=== PATIENT | male | born 1955 | race Caucasian/White ===

== ENCOUNTER 2020-12-08 05:13 | Inpatient (IN) ==
[2020-12-08 06:28] LABS: Basophils % 0.2 %; Hematocrit 52.9 % (37.5-50.1); Hemoglobin 17.9 g/dL (12.9-16.9); Immature Granulocytes % 0.7 % (0-4); Lymphocytes % 11.6 %; Mean Corpuscular HGB Conc 33.8 g/dL (31.6-35.5); Mean Corpuscular Hemoglobin 28.9 pg (28.0-33.3); Mean Corpuscular Volume 85.5 fL (83.0-100.0); Mean Platelet Volume 10.7 fL (9.4-12.4); Monocytes # 0.5 K/mcL (0.0-1.3); Monocytes % 5.5 %; Neutrophils # 6.8 K/mcL (1.6-8.9); Platelet Count 178 K/mcL (140-400); Red Blood Count 6.19 M/mcL (4.19-5.50); Red Cell Distribution Width 13.1 % (11.5-14.5); White Blood Count 8.3 K/mcL (4.3-11.1)
[2020-12-08 06:38] LABS: BUN/Creatinine Ratio 18 (6-26); Blood Urea Nitrogen 26 mg/dL (8-23); Calcium 8.7 mg/dL (8.6-10.3); Chloride 100 mEq/L (98-107); Glucose 119 mg/dL (70-105); Osmolality,Calculated 282 (280-300); Potassium 3.9 mEq/L (3.5-5.1); Sodium 133 mEq/L (136-145); Troponin I 0.03 ng/mL (< 0.04); eGFR For African Americans > 60 (> 60); eGFR For Non-African Americans 51 (> 60)
[2020-12-08 06:39] LABS: D-Dimer 858 ng/mLFEU (0-500)
[2020-12-08] MEDS ORDERED: Isovue-370 500 ML BOTTLE IVP ONE (06:48)
[2020-12-08 06:53] LABS: Influenza A PCR Negative (Negative); Influenza B PCR Negative (Negative); Resp. Syncytial Virus PCR Negative (Negative)
[2020-12-08 06:54] LABS: SARS-CoV-2 by PCR (In House) Positive (Negative)
[2020-12-08 08:07] LABS: Carbon Dioxide 19 mEq/L (23-29)
[2020-12-08] MEDS ORDERED: *HR* Heparin 5,000 UNIT/ML VIAL IVP ONE (08:21)
[2020-12-08] MEDS ORDERED: *HR* Heparin 5,000 UNIT/ML VIAL IVP PRN ×2 (08:21)
[2020-12-08] MEDS ORDERED: Ondansetron 4 MG/2 ML VIAL IVP PRN (08:33)
[2020-12-08] MEDS ORDERED: Naloxone 0.4 MG/ML INJ IVP PRN (08:33)
[2020-12-08 08:36] LABS: Basophils % 0.1 %; Hematocrit 50.3 % (37.5-50.1); Hemoglobin 17.2 g/dL (12.9-16.9); Immature Granulocytes % 0.7 % (0-4); Lymphocytes # 1.1 K/mcL (0.6-4.6); Lymphocytes % 12.9 %; Mean Corpuscular HGB Conc 34.2 g/dL (31.6-35.5); Mean Corpuscular Hemoglobin 29.3 pg (28.0-33.3); Mean Corpuscular Volume 85.5 fL (83.0-100.0); Mean Platelet Volume 10.3 fL (9.4-12.4); Monocytes # 0.5 K/mcL (0.0-1.3); Monocytes % 5.9 %; Neutrophils # 6.5 K/mcL (1.6-8.9); Platelet Count 179 K/mcL (140-400); Red Blood Count 5.88 M/mcL (4.19-5.50); Red Cell Distribution Width 12.8 % (11.5-14.5); Segmented Neutrophils % 80.4 %; White Blood Count 8.1 K/mcL (4.3-11.1)
[2020-12-08 08:43] LABS: Fibrinogen 664 mg/dL (169-393)
[2020-12-08] MEDS ORDERED: Perflutren Lipid Microsphere 1.3 ML in 0.9 % Sodium Chloride 8.7 ML IVP PRN (08:43)
[2020-12-08] MEDS ORDERED: *HR* Dextrose 50 % in Water (Syg) 50 ML SYRINGE IVP PRN (08:46)
[2020-12-08] MEDS ORDERED: Dextrose Gel 15 GM/37.5 ML TUBE PO PRN ×2 (08:46)
[2020-12-08] MEDS ORDERED: D5% in Water 1,000 ML IVC PRN (08:46)
[2020-12-08] MEDS: Heparin 25,000UNIT/250ML 1/2NS 25,000 UNIT/250 ML IV.SOLN IVC SCH (09:12)
[2020-12-08 11:36] LABS: Ferritin > 1500 ng/mL (20-250)
[2020-12-08 11:53] LABS: INR 1.3; Prothrombin Time 14.9 Seconds (9.4-12.1)
[2020-12-08 12:09] LABS: Alanine Aminotransferase 61 Units/L (7-52); Albumin 3.8 g/dL (3.5-5.7); Albumin/Globulin Ratio 1.2 (1.1-2.2); Alkaline Phosphatase 48 Units/L (34-104); Aspartate Amino Transferase 107 Units/L (13-39); Bilirubin,Direct 0.3 mg/dL (0.0-0.2); Bilirubin,Indirect 0.8 mg/dL (0.0-1.0); Bilirubin,Total 1.1 mg/dL (0.3-1.0); C-Reactive Protein 56 mg/L (Less than 10); Globulin 3.3 g/dL (2.4-3.5); Lactate Dehydrogenase 786 Units/L (140-271); Total Protein 7.1 g/dL (6.4-8.9)
[2020-12-08] MEDS: Ipratropium 1 PUFF INHALER IH SCH ×4 (14:06→23:23)
[2020-12-08] MEDS ORDERED: Remdesivir 200 MG in 0.9 % Sodium Chloride 100 ML IVPB ONE (16:06)
[2020-12-08] MEDS ORDERED: Chloraseptic Spray 177 ML BOTTLE MM PRN (23:17)
[2020-12-09] MEDS ORDERED: *HR* Metoprolol 5 MG/5 ML VIAL IVP ONE (02:21)
[2020-12-09] MEDS: Ipratropium 1 PUFF INHALER IH SCH ×4 (03:18→21:15)
[2020-12-09] MEDS ORDERED: Acetaminophen IV 500 MG/50 ML BAG IVPB ONE (04:50)
[2020-12-09 05:41] LABS: Basophils % 0.2 %; Hematocrit 52.8 % (37.5-50.1); Hemoglobin 18.1 g/dL (12.9-16.9); Immature Granulocytes % 0.7 % (0-4); Lymphocytes # 0.8 K/mcL (0.6-4.6); Lymphocytes % 6.1 %; Mean Corpuscular HGB Conc 34.3 g/dL (31.6-35.5); Mean Corpuscular Hemoglobin 29.1 pg (28.0-33.3); Mean Corpuscular Volume 84.9 fL (83.0-100.0); Mean Platelet Volume 10.2 fL (9.4-12.4); Monocytes # 0.5 K/mcL (0.0-1.3); Monocytes % 3.7 %; Neutrophils # 11.8 K/mcL (1.6-8.9); Platelet Count 233 K/mcL (140-400); Red Blood Count 6.22 M/mcL (4.19-5.50); Red Cell Distribution Width 12.9 % (11.5-14.5); Segmented Neutrophils % 89.3 %
[2020-12-09 05:46] LABS: Heparin anti-factor XA UFH 0.9 IU/mL (0.30-0.70)
[2020-12-09 05:54] LABS: White Blood Count 13.2 K/mcL (4.3-11.1)
[2020-12-09 06:13] LABS: Alanine Aminotransferase 45 Units/L (7-52); Albumin 3.6 g/dL (3.5-5.7); Albumin/Globulin Ratio 1.2 (1.1-2.2); Alkaline Phosphatase 48 Units/L (34-104); Aspartate Amino Transferase 58 Units/L (13-39); BUN/Creatinine Ratio 23 (6-26); Bilirubin,Total 1.1 mg/dL (0.3-1.0); Blood Urea Nitrogen 28 mg/dL (8-23); Calcium 8.5 mg/dL (8.6-10.3); Carbon Dioxide 18 mEq/L (23-29); Chloride 105 mEq/L (98-107); Globulin 2.9 g/dL (2.4-3.5); Glucose 132 mg/dL (70-105); Osmolality,Calculated 291 (280-300); Potassium 4.2 mEq/L (3.5-5.1); Sodium 137 mEq/L (136-145); Total Protein 6.5 g/dL (6.4-8.9); eGFR For African Americans > 60 (> 60); eGFR For Non-African Americans 59 (> 60)
[2020-12-09 06:14] LABS: Albumin 3.6 g/dL (3.5-5.7); Albumin/Globulin Ratio 1.2 (1.1-2.2); Bilirubin,Direct 0.5 mg/dL (0.0-0.2); Bilirubin,Indirect 0.6 mg/dL (0.0-1.0); Bilirubin,Total 1.1 mg/dL (0.3-1.0); Total Protein 6.6 g/dL (6.4-8.9)
[2020-12-09] MEDS: cefTRIAXone 1,000 MG in Water for inj. (sterile) 10 ML IVP SCH ×2 (06:15→10:50)
[2020-12-09] MEDS: Azithromycin 500 MG in 0.9 % Sodium Chloride 250 ML IVPB SCH (06:42)
[2020-12-09] MEDS: Dexamethasone Sodium Phos/PF 10 MG/ML VIAL IVP SCH ×2 (07:40→14:43)
[2020-12-09] MEDS ORDERED: Furosemide 20 MG/2 ML VIAL IVP SCH (09:00)
[2020-12-09] MEDS ORDERED: cefTRIAXone 1,000 MG in Water for inj. (sterile) 10 ML IVP SCH (09:00)
[2020-12-09] MEDS: Pantoprazole 40 MG VIAL IVP SCH (10:48)
[2020-12-09] MEDS: Furosemide 20 MG/2 ML VIAL IVP SCH (10:49)
[2020-12-09] MEDS: Metoprolol XL (24 HR) Succ 50 MG TAB.ER.24H PO SCH (10:50)
[2020-12-09] MEDS: Heparin 25,000UNIT/250ML 1/2NS 25,000 UNIT/250 ML IV.SOLN IVC SCH (14:15)
[2020-12-09] MEDS ORDERED: Dexamethasone Sodium Phos/PF 10 MG/ML VIAL IVP ONE (14:30)
[2020-12-09] MEDS: Remdesivir 100 MG in 0.9 % Sodium Chloride 100 ML IVPB SCH (18:01)
[2020-12-10] MEDS: Ipratropium 1 PUFF INHALER IH SCH ×4 (03:18→21:31)
[2020-12-10 06:13] LABS: Basophils % 0.2 %; Hemoglobin 18.8 g/dL (12.9-16.9); Lymphocytes # 0.8 K/mcL (0.6-4.6); Lymphocytes % 5.8 %; Mean Corpuscular HGB Conc 33.8 g/dL (31.6-35.5); Mean Corpuscular Hemoglobin 29.1 pg (28.0-33.3); Mean Corpuscular Volume 85.9 fL (83.0-100.0); Mean Platelet Volume 10.2 fL (9.4-12.4); Monocytes # 0.6 K/mcL (0.0-1.3); Monocytes % 4.3 %; Neutrophils # 11.5 K/mcL (1.6-8.9); Platelet Count 309 K/mcL (140-400); Red Blood Count 6.47 M/mcL (4.19-5.50); Red Cell Distribution Width 13.2 % (11.5-14.5); Segmented Neutrophils % 88.7 %
[2020-12-10 06:19] LABS: Hematocrit 55.6 % (37.5-50.1)
[2020-12-10 06:21] LABS: BUN/Creatinine Ratio 34 (6-26); Blood Urea Nitrogen 43 mg/dL (8-23); Calcium 8.7 mg/dL (8.6-10.3); Carbon Dioxide 22 mEq/L (23-29); Chloride 109 mEq/L (98-107); Glucose 166 mg/dL (70-105); Osmolality,Calculated 309 (280-300); Sodium 142 mEq/L (136-145); eGFR For African Americans > 60 (> 60); eGFR For Non-African Americans 57 (> 60)
[2020-12-10 06:22] LABS: Albumin 3.6 g/dL (3.5-5.7); Albumin/Globulin Ratio 1.2 (1.1-2.2); Bilirubin,Direct 0.4 mg/dL (0.0-0.2); Bilirubin,Indirect 0.7 mg/dL (0.0-1.0); Bilirubin,Total 1.1 mg/dL (0.3-1.0); Globulin 3.1 g/dL (2.4-3.5); Total Protein 6.7 g/dL (6.4-8.9)
[2020-12-10] MEDS: Azithromycin 500 MG in 0.9 % Sodium Chloride 250 ML IVPB SCH (06:38)
[2020-12-10] MEDS: Furosemide 20 MG/2 ML VIAL IVP SCH (08:37)
[2020-12-10] MEDS: cefTRIAXone 1,000 MG in Water for inj. (sterile) 10 ML IVP SCH (08:38)
[2020-12-10] MEDS: Dexamethasone Sodium Phos/PF 10 MG/ML VIAL IVP SCH (08:38)
[2020-12-10] MEDS: Pantoprazole 40 MG VIAL IVP SCH (08:39)
[2020-12-10] MEDS: Metoprolol XL (24 HR) Succ 50 MG TAB.ER.24H PO SCH (11:44)
[2020-12-10] MEDS ORDERED: *HR* Rivaroxaban 10 MG TABLET PO SCH (17:00)
[2020-12-10] MEDS: Remdesivir 100 MG in 0.9 % Sodium Chloride 100 ML IVPB SCH (17:38)
[2020-12-11] MEDS: Ipratropium 1 PUFF INHALER IH SCH ×4 (02:56→22:15)
[2020-12-11] MEDS: Azithromycin 500 MG in 0.9 % Sodium Chloride 250 ML IVPB SCH (05:26)
[2020-12-11] MEDS: *HR* Enoxaparin 120 MG/0.8 ML SYRINGE SQ SCH ×2 (05:28→17:00)
[2020-12-11 06:43] LABS: Basophils # 0.1 K/mcL (0.0-0.2); Basophils % 0.4 %; Hemoglobin 18.1 g/dL (12.9-16.9); Immature Granulocytes % 1.2 % (0-4); Lymphocytes # 0.6 K/mcL (0.6-4.6); Lymphocytes % 3.1 %; Mean Corpuscular HGB Conc 33.5 g/dL (31.6-35.5); Mean Corpuscular Volume 86.5 fL (83.0-100.0); Mean Platelet Volume 9.9 fL (9.4-12.4); Monocytes # 0.7 K/mcL (0.0-1.3); Monocytes % 3.8 %; Neutrophils # 16.5 K/mcL (1.6-8.9); Platelet Count 391 K/mcL (140-400); Red Blood Count 6.24 M/mcL (4.19-5.50); Red Cell Distribution Width 13.4 % (11.5-14.5); Segmented Neutrophils % 91.5 %
[2020-12-11 07:02] LABS: Calcium 8.5 mg/dL (8.6-10.3); Magnesium 3.1 mg/dL (1.6-2.6); Potassium 3.7 mEq/L (3.5-5.1)
[2020-12-11 07:03] LABS: Albumin 3.4 g/dL (3.5-5.7); Albumin/Globulin Ratio 1.1 (1.1-2.2); Bilirubin,Direct 0.4 mg/dL (0.0-0.2); Bilirubin,Indirect 0.7 mg/dL (0.0-1.0); Bilirubin,Total 1.1 mg/dL (0.3-1.0); Total Protein 6.4 g/dL (6.4-8.9)
[2020-12-11] MEDS ORDERED: Cholecalciferol (D-3) 1,000 UNIT (25MCG) TABLET PO SCH (09:00)
[2020-12-11] MEDS: Dexamethasone Sodium Phos/PF 10 MG/ML VIAL IVP SCH (09:10)
[2020-12-11] MEDS: Pantoprazole 40 MG VIAL IVP SCH (09:10)
[2020-12-11] MEDS: cefTRIAXone 1,000 MG in Water for inj. (sterile) 10 ML IVP SCH (09:11)
[2020-12-11] MEDS: Cholecalciferol (D-3) 1,000 UNIT (25MCG) TABLET PO SCH (09:12)
[2020-12-11] MEDS: Metoprolol XL (24 HR) Succ 50 MG TAB.ER.24H PO SCH (09:12)
[2020-12-11] MEDS: Heparin 25,000UNIT/250ML 1/2NS 25,000 UNIT/250 ML IV.SOLN IVC SCH (10:08)
[2020-12-11 14:56] LABS: % Iron Saturation 54 % (20-55); Iron 114 mcg/dL (65-175); Lactate Dehydrogenase 548 Units/L (140-271); Transferrin 150 mg/dL (203-362)
[2020-12-11 15:19] LABS: Ferritin > 1500 ng/mL (20-250)
[2020-12-11] MEDS: Remdesivir 100 MG in 0.9 % Sodium Chloride 100 ML IVPB SCH (16:59)
[2020-12-11] MEDS: *HR* Metoprolol 5 MG/5 ML VIAL IVP PRN (20:29)
[2020-12-11] MEDS: Acetaminophen 325 MG TABLET PO PRN (20:29)
[2020-12-12] MEDS: *HR* Metoprolol 5 MG/5 ML VIAL IVP PRN ×2 (02:25→21:04)
[2020-12-12] MEDS ORDERED: Saline Nasal Spray 44 ML BOTTLE NS PRN (02:27)
[2020-12-12] MEDS: Ipratropium 1 PUFF INHALER IH SCH ×4 (02:59→22:00)
[2020-12-12] MEDS: Azithromycin 500 MG in 0.9 % Sodium Chloride 250 ML IVPB SCH (04:33)
[2020-12-12] MEDS: *HR* Enoxaparin 120 MG/0.8 ML SYRINGE SQ SCH ×2 (04:59→17:43)
[2020-12-12] MEDS: Acetaminophen 325 MG TABLET PO PRN (05:48)
[2020-12-12] MEDS ORDERED: *HR* Metoprolol 5 MG/5 ML VIAL IVP ONE (06:30)
[2020-12-12 09:38] LABS: Basophils % 0.2 %; Hematocrit 54.6 % (37.5-50.1); Hemoglobin 18.4 g/dL (12.9-16.9); Immature Granulocytes % 1.3 % (0-4); Lymphocytes # 0.4 K/mcL (0.6-4.6); Lymphocytes % 2.4 %; Mean Corpuscular HGB Conc 33.7 g/dL (31.6-35.5); Mean Corpuscular Hemoglobin 29.1 pg (28.0-33.3); Mean Corpuscular Volume 86.4 fL (83.0-100.0); Mean Platelet Volume 10.1 fL (9.4-12.4); Monocytes # 0.7 K/mcL (0.0-1.3); Neutrophils # 16.4 K/mcL (1.6-8.9); Platelet Count 404 K/mcL (140-400); Red Blood Count 6.32 M/mcL (4.19-5.50); Segmented Neutrophils % 92.1 %; White Blood Count 17.8 K/mcL (4.3-11.1)
[2020-12-12] MEDS: Metoprolol XL (24 HR) Succ 50 MG TAB.ER.24H PO SCH (09:38)
[2020-12-12] MEDS: cefTRIAXone 1,000 MG in Water for inj. (sterile) 10 ML IVP SCH (09:38)
[2020-12-12] MEDS: Cholecalciferol (D-3) 1,000 UNIT (25MCG) TABLET PO SCH (09:38)
[2020-12-12] MEDS: Pantoprazole 40 MG VIAL IVP SCH (09:39)
[2020-12-12] MEDS: Dexamethasone Sodium Phos/PF 10 MG/ML VIAL IVP SCH (09:39)
[2020-12-12 10:02] LABS: Alanine Aminotransferase 47 Units/L (7-52); Albumin 3.5 g/dL (3.5-5.7); Albumin/Globulin Ratio 1.2 (1.1-2.2); Alkaline Phosphatase 75 Units/L (34-104); Aspartate Amino Transferase 49 Units/L (13-39); BUN/Creatinine Ratio 32 (6-26); Bilirubin,Direct 0.3 mg/dL (0.0-0.2); Bilirubin,Indirect 0.9 mg/dL (0.0-1.0); Bilirubin,Total 1.2 mg/dL (0.3-1.0); Blood Urea Nitrogen 43 mg/dL (8-23); Calcium 8.7 mg/dL (8.6-10.3); Carbon Dioxide 23 mEq/L (23-29); Chloride 110 mEq/L (98-107); Glucose 175 mg/dL (70-105); Magnesium 3.2 mg/dL (1.6-2.6); Osmolality,Calculated 313 (280-300); Phosphorous 3.2 mg/dL (2.7-4.5); Potassium 4.3 mEq/L (3.5-5.1); Sodium 144 mEq/L (136-145); Total Protein 6.5 g/dL (6.4-8.9); eGFR For African Americans > 60 (> 60); eGFR For Non-African Americans 53 (> 60)
[2020-12-12] MEDS: Levalbuterol 1 PUFF INHALER IH SCH ×2 (15:43→22:01)
[2020-12-12] MEDS: DilTIAZem 50 MG/50 ML IV.SOLN IVC SCH ×2 (16:14→21:09)
[2020-12-12 16:56] LABS: Hematocrit 54.9 % (37.5-50.1); Hemoglobin 18.5 g/dL (12.9-16.9)
[2020-12-12 21:32] LABS: Hematocrit 54.2 % (37.5-50.1)
[2020-12-13] MEDS: DilTIAZem 50 MG/50 ML IV.SOLN IVC SCH ×4 (00:09→10:10)
[2020-12-13] MEDS: Levalbuterol 1 PUFF INHALER IH SCH ×4 (03:57→21:56)
[2020-12-13] MEDS: Ipratropium 1 PUFF INHALER IH SCH ×4 (03:57→21:56)
[2020-12-13] MEDS: *HR* Enoxaparin 120 MG/0.8 ML SYRINGE SQ SCH ×2 (06:25→16:22)
[2020-12-13 06:42] LABS: Basophils # 0.1 K/mcL (0.0-0.2); Basophils % 0.4 %; Hemoglobin 18.4 g/dL (12.9-16.9); Immature Granulocytes % 0.8 % (0-4); Lymphocytes # 0.4 K/mcL (0.6-4.6); Lymphocytes % 2.2 %; Mean Corpuscular HGB Conc 31.6 g/dL (31.6-35.5); Mean Corpuscular Hemoglobin 28.9 pg (28.0-33.3); Mean Corpuscular Volume 91.5 fL (83.0-100.0); Mean Platelet Volume 10.7 fL (9.4-12.4); Monocytes # 0.7 K/mcL (0.0-1.3); Monocytes % 4.5 %; Neutrophils # 14.7 K/mcL (1.6-8.9); Platelet Count 328 K/mcL (140-400); Red Blood Count 6.36 M/mcL (4.19-5.50); Red Cell Distribution Width 13.3 % (11.5-14.5); Segmented Neutrophils % 92.1 %; White Blood Count 15.9 K/mcL (4.3-11.1)
[2020-12-13 06:44] LABS: Hematocrit 58.2 % (37.5-50.1)
[2020-12-13 07:03] LABS: Albumin 3.4 g/dL (3.5-5.7); Albumin/Globulin Ratio 1.2 (1.1-2.2); Blood Urea Nitrogen 38 mg/dL (8-23); Globulin 2.9 g/dL (2.4-3.5); Magnesium 3.1 mg/dL (1.6-2.6); Total Protein 6.3 g/dL (6.4-8.9); eGFR For African Americans > 60 (> 60)
[2020-12-13] MEDS: Haloperidol Lactate 5 MG/ML VIAL IVP PRN (07:53)
[2020-12-13] MEDS: Dexmedetomidine HCl 400 MCG/100 ML MLS IVC SCH ×4 (08:17→22:02)
[2020-12-13] MEDS ORDERED: Azithromycin 250 MG TABLET PO SCH (09:00)
[2020-12-13 09:41] LABS: Alanine Aminotransferase 52 Units/L (7-52); Alkaline Phosphatase 77 Units/L (34-104); Aspartate Amino Transferase 63 Units/L (13-39); BUN/Creatinine Ratio 30 (6-26); Bilirubin,Direct 0.2 mg/dL (0.0-0.2); Bilirubin,Total 1.2 mg/dL (0.3-1.0); Calcium 8.3 mg/dL (8.6-10.3); Carbon Dioxide 20 mEq/L (23-29); Chloride 110 mEq/L (98-107); Glucose 163 mg/dL (70-105); Osmolality,Calculated 309 (280-300); Potassium 4.6 mEq/L (3.5-5.1); Sodium 143 mEq/L (136-145); eGFR For Non-African Americans 58 (> 60)
[2020-12-13] MEDS ORDERED: 0.9 % Sodium Chloride 1,000 ML ONE (10:49)
[2020-12-13] MEDS ORDERED: *HR* LORazepam 2 MG/ML VIAL IVP ONE (10:54)
[2020-12-13] MEDS ORDERED: Morphine Sulfate 2 MG/ML SYRINGE IVP ONE (10:54)
[2020-12-13] MEDS ORDERED: *HR* LORazepam 2 MG/ML VIAL ONE (10:55)
[2020-12-13] MEDS: Dexamethasone Sodium Phos/PF 10 MG/ML VIAL IVP SCH (11:00)
[2020-12-13 11:22] LABS: ABG Base Excess 0 mEq/L (-2 to 3); ABG HCO3 23 mEq/L (21-27); ABG Oxygen Saturation 98 % (95-98); ABG PCO2 34 mmHg (35-45); ABG PH 7.45 pH Units (7.32-7.45); ABG PO2 95 mmHg (85-104); ABG TCO2 24 mEq/L (20-26)
[2020-12-13] MEDS ORDERED: Dexamethasone Sodium Phos/PF 10 MG/ML VIAL IVP SCH (11:45)
[2020-12-13] MEDS: Cholecalciferol (D-3) 1,000 UNIT (25MCG) TABLET PO SCH (11:50)
[2020-12-13] MEDS: Aspirin 81 MG TAB.CHEW PO SCH (11:50)
[2020-12-13] MEDS: Metoprolol XL (24 HR) Succ 50 MG TAB.ER.24H PO SCH (11:50)
[2020-12-13] MEDS: cefTRIAXone 1,000 MG in Water for inj. (sterile) 10 ML IVP SCH (11:51)
[2020-12-13] MEDS: Pantoprazole 40 MG VIAL IVP SCH (11:52)
[2020-12-13] MEDS: Morphine Sulfate 2 MG/ML SYRINGE IVP PRN (16:22)
[2020-12-13] MEDS: Norepinephrine 4 MG/254 ML IV.SOLN IVC SCH ×2 (17:21→17:26)
[2020-12-13] MEDS: Midazolam HCl 50 MG/100 ML IV.SOLN IVC SCH (17:27)
[2020-12-13] MEDS: FentaNYL (PF) 1,000 MCG/100 ML IV.SOLN IVC SCH (17:27)
[2020-12-13] MEDS: Cisatracurium 200 MG in 0.9 % Sodium Chloride 180 ML IVC SCH (17:27)
[2020-12-13] MEDS: Insulin LISPRO 300 UNITS/3 ML VIAL SUBQ SCH (20:52)
[2020-12-14] MEDS ORDERED: Insulin LISPRO 300 UNITS/3 ML VIAL SUBQ SCH
[2020-12-14] MEDS: Insulin LISPRO 300 UNITS/3 ML VIAL SUBQ SCH ×6 (00:34→16:24)
[2020-12-14] MEDS: *HR* LORazepam 2 MG/ML VIAL IVP PRN ×2 (00:43→08:53)
[2020-12-14] MEDS: Dexmedetomidine HCl 400 MCG/100 ML MLS IVC SCH ×5 (02:20→19:30)
[2020-12-14] MEDS: Levalbuterol 1 PUFF INHALER IH SCH ×4 (03:54→22:26)
[2020-12-14] MEDS: Ipratropium 1 PUFF INHALER IH SCH ×4 (03:54→22:25)
[2020-12-14 04:01] LABS: Basophils % 0.2 %; Hematocrit 52.7 % (37.5-50.1); Hemoglobin 17.1 g/dL (12.9-16.9); Lymphocytes # 0.3 K/mcL (0.6-4.6); Lymphocytes % 2.2 %; Mean Corpuscular HGB Conc 32.4 g/dL (31.6-35.5); Mean Corpuscular Hemoglobin 29.1 pg (28.0-33.3); Mean Corpuscular Volume 89.8 fL (83.0-100.0); Mean Platelet Volume 10.1 fL (9.4-12.4); Monocytes # 0.5 K/mcL (0.0-1.3); Monocytes % 3.6 %; Neutrophils # 12.1 K/mcL (1.6-8.9); Platelet Count 337 K/mcL (140-400); Red Blood Count 5.87 M/mcL (4.19-5.50); Red Cell Distribution Width 13.1 % (11.5-14.5)
[2020-12-14 04:08] LABS: VBG Ionized Calcium 1.06 mmol/L (1.15-1.35)
[2020-12-14 04:20] LABS: Calcium 8.3 mg/dL (8.6-10.3); Magnesium 3.4 mg/dL (1.6-2.6); Phosphorous 5.1 mg/dL (2.7-4.5); Potassium 5.1 mEq/L (3.5-5.1)
[2020-12-14] MEDS: *HR* Enoxaparin 120 MG/0.8 ML SYRINGE SQ SCH ×2 (06:07→17:34)
[2020-12-14] MEDS: Calcium Gluconate 1gm/50mL 1 GM/50 ML BAG IVPB SCH ×2 (06:46→07:50)
[2020-12-14] MEDS: Norepinephrine 4 MG/254 ML IV.SOLN IVC SCH ×2 (07:50→12:25)
[2020-12-14] MEDS: FentaNYL (PF) 1,000 MCG/100 ML IV.SOLN IVC SCH (07:50)
[2020-12-14] MEDS: Pantoprazole 40 MG VIAL IVP SCH (08:52)
[2020-12-14] MEDS: Aspirin 81 MG TAB.CHEW PO SCH (08:52)
[2020-12-14] MEDS: Dexamethasone Sodium Phos/PF 10 MG/ML VIAL IVP SCH (08:52)
[2020-12-14] MEDS: Cholecalciferol (D-3) 1,000 UNIT (25MCG) TABLET PO SCH (08:53)
[2020-12-14] MEDS: cefTRIAXone 1,000 MG in Water for inj. (sterile) 10 ML IVP SCH (08:53)
[2020-12-14] MEDS ORDERED: Ziprasidone 10 MG, Closed System Device IM Kit 1 EACH in Water for inj. (sterile) 0.5 ML IM ONE (09:30)
[2020-12-14] MEDS ORDERED: D10% in Water 500 ML IVC PRN (11:02)
[2020-12-14] MEDS: Midazolam HCl 50 MG/100 ML IV.SOLN IVC SCH (12:24)
[2020-12-14] MEDS: Cisatracurium 200 MG in 0.9 % Sodium Chloride 180 ML IVC SCH (12:24)
[2020-12-14] MEDS ORDERED: Clinimix 5%-20% SOLUTION 2,000 ML with MVI, adult with vitamin K 10 ML, Sodium Acetat... IVC SCH (17:00)
[2020-12-15] MEDS: Dexmedetomidine HCl 400 MCG/100 ML MLS IVC SCH ×3 (00:19→11:56)
[2020-12-15] MEDS: Insulin LISPRO 300 UNITS/3 ML VIAL SUBQ SCH ×6 (00:33→22:22)
[2020-12-15] MEDS: Levalbuterol 1 PUFF INHALER IH SCH ×4 (03:37→21:51)
[2020-12-15] MEDS: Ipratropium 1 PUFF INHALER IH SCH ×4 (03:37→21:50)
[2020-12-15] MEDS: *HR* LORazepam 2 MG/ML VIAL IVP PRN (04:45)
[2020-12-15 04:46] LABS: VBG Ionized Calcium 1.15 mmol/L (1.15-1.35)
[2020-12-15 04:51] LABS: Hematocrit 54.4 % (37.5-50.1); Hemoglobin 17.7 g/dL (12.9-16.9); INR 1.3; Mean Corpuscular HGB Conc 32.5 g/dL (31.6-35.5); Mean Corpuscular Hemoglobin 28.9 pg (28.0-33.3); Mean Corpuscular Volume 88.9 fL (83.0-100.0); Mean Platelet Volume 10.5 fL (9.4-12.4); Platelet Count 313 K/mcL (140-400); Prothrombin Time 14.1 Seconds (9.4-12.1); Red Blood Count 6.12 M/mcL (4.19-5.50); Red Cell Distribution Width 13.1 % (11.5-14.5); White Blood Count 12.4 K/mcL (4.3-11.1)
[2020-12-15 05:03] LABS: BUN/Creatinine Ratio 44 (6-26); Blood Urea Nitrogen 52 mg/dL (8-23); Calcium 8.8 mg/dL (8.6-10.3); Carbon Dioxide 24 mEq/L (23-29); Chloride 116 mEq/L (98-107); Glucose 265 mg/dL (70-105); Magnesium 3.2 mg/dL (1.6-2.6); Osmolality,Calculated 327 (280-300); Phosphorous 3.4 mg/dL (2.7-4.5); Potassium 4.5 mEq/L (3.5-5.1); Sodium 147 mEq/L (136-145); Triglycerides 330 mg/dL (< 150); eGFR For African Americans > 60 (> 60); eGFR For Non-African Americans > 60 (> 60)
[2020-12-15 05:06] LABS: Heparin anti-factor XA UFH 1.42 IU/mL (0.30-0.70)
[2020-12-15] MEDS: Norepinephrine 4 MG/254 ML IV.SOLN IVC SCH ×3 (05:28→22:22)
[2020-12-15] MEDS: FentaNYL (PF) 1,000 MCG/100 ML IV.SOLN IVC SCH (05:28)
[2020-12-15] MEDS ORDERED: Heparin 25,000UNIT/250ML 1/2NS 25,000 UNIT/250 ML IV.SOLN IVC SCH ×2 (06:00)
[2020-12-15] MEDS ORDERED: *HR* Heparin 5,000 UNIT/ML VIAL IVP PRN ×2 (06:00)
[2020-12-15] MEDS: Dexamethasone Sodium Phos/PF 10 MG/ML VIAL IVP SCH (08:35)
[2020-12-15] MEDS: Aspirin 81 MG TAB.CHEW PO SCH (08:35)
[2020-12-15] MEDS: cefTRIAXone 1,000 MG in Water for inj. (sterile) 10 ML IVP SCH (08:36)
[2020-12-15] MEDS: Pantoprazole 40 MG VIAL IVP SCH (08:36)
[2020-12-15] MEDS: Cholecalciferol (D-3) 1,000 UNIT (25MCG) TABLET PO SCH (08:37)
[2020-12-15] MEDS: Cisatracurium 200 MG in 0.9 % Sodium Chloride 180 ML IVC SCH (08:53)
[2020-12-15] MEDS: Midazolam HCl 50 MG/100 ML IV.SOLN IVC SCH (08:53)
[2020-12-15] MEDS: DilTIAZem 50 MG/50 ML IV.SOLN IVC SCH ×3 (15:15→22:39)
[2020-12-15] MEDS: Heparin 25,000UNIT/250ML 1/2NS 25,000 UNIT/250 ML IV.SOLN IVC SCH (15:46)
[2020-12-15] MEDS ORDERED: Clinimix 5%-20% SOLUTION 2,000 ML with MVI, adult with vitamin K 10 ML, Sodium Phosph... IVC SCH (17:00)
[2020-12-16] MEDS: Dexmedetomidine HCl 400 MCG/100 ML MLS IVC SCH (00:08)
[2020-12-16] MEDS: Insulin LISPRO 300 UNITS/3 ML VIAL SUBQ SCH ×6 (00:15→20:05)
[2020-12-16] MEDS: FentaNYL (PF) 1,000 MCG/100 ML IV.SOLN IVC SCH ×2 (00:15→18:21)
[2020-12-16] MEDS: DilTIAZem 50 MG/50 ML IV.SOLN IVC SCH (02:39)
[2020-12-16] MEDS: Ipratropium 1 PUFF INHALER IH SCH ×4 (03:17→22:52)
[2020-12-16] MEDS: Levalbuterol 1 PUFF INHALER IH SCH ×4 (03:17→22:53)
[2020-12-16 04:34] LABS: VBG Ionized Calcium 1.13 mmol/L (1.15-1.35)
[2020-12-16 04:44] LABS: Basophils % 0.2 %; Hematocrit 58.2 % (37.5-50.1); Hemoglobin 18.7 g/dL (12.9-16.9); Lymphocytes # 0.4 K/mcL (0.6-4.6); Mean Corpuscular HGB Conc 32.1 g/dL (31.6-35.5); Mean Corpuscular Hemoglobin 28.6 pg (28.0-33.3); Mean Corpuscular Volume 89.1 fL (83.0-100.0); Mean Platelet Volume 10.5 fL (9.4-12.4); Monocytes # 0.8 K/mcL (0.0-1.3); Monocytes % 4.3 %; Neutrophils # 16.2 K/mcL (1.6-8.9); Platelet Count 325 K/mcL (140-400); Red Blood Count 6.53 M/mcL (4.19-5.50); Red Cell Distribution Width 13.4 % (11.5-14.5); Segmented Neutrophils % 91.5 %; White Blood Count 17.7 K/mcL (4.3-11.1)
[2020-12-16 05:06] LABS: Calcium 8.9 mg/dL (8.6-10.3); Phosphorous 4.2 mg/dL (2.7-4.5); Potassium 4.8 mEq/L (3.5-5.1)
[2020-12-16] MEDS: Norepinephrine 4 MG/254 ML IV.SOLN IVC SCH ×2 (06:32→14:21)
[2020-12-16] MEDS: Dexamethasone Sodium Phos/PF 10 MG/ML VIAL IVP SCH ×2 (07:34→09:18)
[2020-12-16] MEDS ORDERED: D5% in Water 1,000 ML IVC SCH (08:00)
[2020-12-16] MEDS: Aspirin 81 MG TAB.CHEW PO SCH (09:14)
[2020-12-16] MEDS: cefTRIAXone 1,000 MG in Water for inj. (sterile) 10 ML IVP SCH (09:18)
[2020-12-16] MEDS: Pantoprazole 40 MG VIAL IVP SCH (09:18)
[2020-12-16] MEDS: Cholecalciferol (D-3) 1,000 UNIT (25MCG) TABLET PO SCH (09:19)
[2020-12-16] MEDS: Cisatracurium 200 MG in 0.9 % Sodium Chloride 180 ML IVC SCH (11:30)
[2020-12-16] MEDS: Midazolam HCl 50 MG/100 ML IV.SOLN IVC SCH (11:30)
[2020-12-16] MEDS: Heparin 25,000UNIT/250ML 1/2NS 25,000 UNIT/250 ML IV.SOLN IVC SCH (12:09)
[2020-12-16] MEDS: *HR* Metoprolol 5 MG/5 ML VIAL IVP PRN ×2 (14:31→20:05)
[2020-12-16] MEDS ORDERED: Clinimix 5%-20% SOLUTION 2,000 ML with MVI, adult with vitamin K 10 ML, Sodium Phosph... IVC SCH ×2 (17:00)
[2020-12-16] MEDS ORDERED: *HR* Metoprolol 5 MG/5 ML VIAL IVP ONE ×2 (18:03→21:56)
[2020-12-16] MEDS: *HR* LORazepam 2 MG/ML VIAL IVP PRN (18:44)
[2020-12-16] MEDS: Morphine Sulfate 2 MG/ML SYRINGE IVP PRN (19:48)
[2020-12-16] MEDS ORDERED: *HR* LORazepam 2 MG/ML VIAL IVP PRN (20:02)
[2020-12-16] MEDS: Haloperidol Lactate 5 MG/ML VIAL IVP PRN (22:05)
[2020-12-17] MEDS: Norepinephrine 4 MG/254 ML IV.SOLN IVC SCH ×4 (00:01→21:16)
[2020-12-17] MEDS: Morphine Sulfate 2 MG/ML SYRINGE IVP PRN ×2 (01:25→08:39)
[2020-12-17] MEDS: Ipratropium 1 PUFF INHALER IH SCH ×4 (03:12→20:10)
[2020-12-17] MEDS: Levalbuterol 1 PUFF INHALER IH SCH ×4 (03:12→20:11)
[2020-12-17 04:24] LABS: VBG Ionized Calcium 1.13 mmol/L (1.15-1.35)
[2020-12-17] MEDS: Insulin LISPRO 300 UNITS/3 ML VIAL SUBQ SCH ×7 (04:59→23:28)
[2020-12-17] MEDS: *HR* Metoprolol 5 MG/5 ML VIAL IVP PRN (05:01)
[2020-12-17 05:07] LABS: Basophils % 0.4 %; Lymphocytes % 2.3 %
[2020-12-17 05:09] LABS: Basophils # 0.1 K/mcL (0.0-0.2); Hematocrit 50.8 % (37.5-50.1); Hemoglobin 16.9 g/dL (12.9-16.9); Immature Granulocytes % 4.1 % (0-4); Lymphocytes # 0.6 K/mcL (0.6-4.6); Mean Corpuscular HGB Conc 33.3 g/dL (31.6-35.5); Mean Corpuscular Hemoglobin 29.9 pg (28.0-33.3); Mean Corpuscular Volume 89.8 fL (83.0-100.0); Monocytes # 1.4 K/mcL (0.0-1.3); Monocytes % 5.5 %; Neutrophils # 22.5 K/mcL (1.6-8.9); Platelet Count 376 K/mcL (140-400); Red Blood Count 5.66 M/mcL (4.19-5.50); Red Cell Distribution Width 13.2 % (11.5-14.5); Segmented Neutrophils % 87.7 %; White Blood Count 25.7 K/mcL (4.3-11.1)
[2020-12-17 07:48] LABS: BUN/Creatinine Ratio 35 (6-26); Blood Urea Nitrogen 49 mg/dL (8-23); Calcium 8.4 mg/dL (8.6-10.3); Carbon Dioxide 21 mEq/L (23-29); Chloride 119 mEq/L (98-107); Glucose 225 mg/dL (70-105); Magnesium 2.6 mg/dL (1.6-2.6); Osmolality,Calculated 326 (280-300); Phosphorous 3.1 mg/dL (2.7-4.5); Potassium 4.9 mEq/L (3.5-5.1); Sodium 148 mEq/L (136-145); eGFR For African Americans > 60 (> 60); eGFR For Non-African Americans 51 (> 60)
[2020-12-17] MEDS: Heparin 25,000UNIT/250ML 1/2NS 25,000 UNIT/250 ML IV.SOLN IVC SCH ×2 (08:32→22:09)
[2020-12-17] MEDS: Aspirin 81 MG TAB.CHEW PO SCH (08:33)
[2020-12-17] MEDS: Cholecalciferol (D-3) 1,000 UNIT (25MCG) TABLET PO SCH (08:33)
[2020-12-17] MEDS: Pantoprazole 40 MG VIAL IVP SCH (08:38)
[2020-12-17] MEDS: cefTRIAXone 1,000 MG in Water for inj. (sterile) 10 ML IVP SCH (08:38)
[2020-12-17] MEDS: Dexamethasone Sodium Phos/PF 10 MG/ML VIAL IVP SCH (08:38)
[2020-12-17] MEDS: Dexmedetomidine HCl 400 MCG/100 ML MLS IVC SCH ×3 (10:46→22:08)
[2020-12-17] MEDS: Haloperidol Lactate 5 MG/ML VIAL IVP PRN (12:38)
[2020-12-17] MEDS: *HR* Metoprolol 5 MG/5 ML VIAL IVP SCH ×3 (12:41→23:25)
[2020-12-17] MEDS ORDERED: Clinimix 5%-20% SOLUTION 2,000 ML with MVI, adult with vitamin K 10 ML, Sodium Phosph... IVC SCH ×2 (17:00)
[2020-12-18] MEDS: Insulin LISPRO 300 UNITS/3 ML VIAL SUBQ SCH ×6 (03:58→23:36)
[2020-12-18] MEDS: Levalbuterol 1 PUFF INHALER IH SCH ×4 (04:03→22:10)
[2020-12-18] MEDS: Ipratropium 1 PUFF INHALER IH SCH ×4 (04:03→22:10)
[2020-12-18 04:07] LABS: VBG Ionized Calcium 1.16 mmol/L (1.15-1.35)
[2020-12-18 04:10] LABS: Basophils # 0.1 K/mcL (0.0-0.2); Basophils % 0.4 %; Hematocrit 45.2 % (37.5-50.1); Immature Granulocytes % 3.3 % (0-4); Lymphocytes % 4.8 %; Mean Corpuscular HGB Conc 31.9 g/dL (31.6-35.5); Mean Corpuscular Hemoglobin 29.3 pg (28.0-33.3); Mean Corpuscular Volume 91.9 fL (83.0-100.0); Mean Platelet Volume 11.3 fL (9.4-12.4); Monocytes # 1.3 K/mcL (0.0-1.3); Monocytes % 5.9 %; Neutrophils # 18.2 K/mcL (1.6-8.9); Nucleated Red Blood Cells 0.1 /100 WBC (0); Platelet Count 244 K/mcL (140-400); Red Blood Count 4.92 M/mcL (4.19-5.50); Red Cell Distribution Width 13.3 % (11.5-14.5); Segmented Neutrophils % 85.6 %; White Blood Count 21.3 K/mcL (4.3-11.1)
[2020-12-18 04:11] LABS: Hemoglobin 14.4 g/dL (12.9-16.9)
[2020-12-18 04:23] LABS: Calcium 8.4 mg/dL (8.6-10.3); Magnesium 2.9 mg/dL (1.6-2.6); Phosphorous 3.6 mg/dL (2.7-4.5); Potassium 5.3 mEq/L (3.5-5.1)
[2020-12-18] MEDS: Dexmedetomidine HCl 400 MCG/100 ML MLS IVC SCH ×3 (05:21→21:21)
[2020-12-18] MEDS: *HR* Metoprolol 5 MG/5 ML VIAL IVP SCH ×4 (05:26→23:38)
[2020-12-18] MEDS: Aspirin 81 MG TAB.CHEW PO SCH (08:01)
[2020-12-18] MEDS: Norepinephrine 4 MG/254 ML IV.SOLN IVC SCH ×3 (08:01→23:38)
[2020-12-18] MEDS: Cholecalciferol (D-3) 1,000 UNIT (25MCG) TABLET PO SCH (08:02)
[2020-12-18] MEDS: Pantoprazole 40 MG VIAL IVP SCH (08:09)
[2020-12-18] MEDS: cefTRIAXone 1,000 MG in Water for inj. (sterile) 10 ML IVP SCH (08:09)
[2020-12-18] MEDS: Dexamethasone Sodium Phos/PF 10 MG/ML VIAL IVP SCH (08:10)
[2020-12-18] MEDS: Haloperidol Lactate 5 MG/ML VIAL IVP PRN ×2 (10:27→22:12)
[2020-12-18] MEDS ORDERED: Thiamine (B-1) 100 MG, Folic Acid 1 MG, MVI, adult with vitamin K 10 ML in 0.9 % Sodi... IVPB SCH (12:29)
[2020-12-18] MEDS: Morphine Sulfate 2 MG/ML SYRINGE IVP PRN ×2 (12:35→16:04)
[2020-12-18] MEDS: Thiamine (B-1) 500 MG in 0.9 % Sodium Chloride 50 ML IVPB SCH ×2 (15:33→20:22)
[2020-12-18] MEDS ORDERED: Clinimix 5%-20% SOLUTION 2,000 ML with MVI, adult with vitamin K 10 ML, Sodium Phosph... IVC SCH (17:00)
[2020-12-18] MEDS: Heparin 25,000UNIT/250ML 1/2NS 25,000 UNIT/250 ML IV.SOLN IVC SCH (18:21)
[2020-12-18 20:02] LABS: JAK2 (V617F) SOURCE NOT SPECIFIED
[2020-12-19] MEDS ORDERED: Artificial Tears SOLN 15 ML BOTTLE BOTH EYES PRN (01:39)
[2020-12-19] MEDS: Cisatracurium 200 MG in 0.9 % Sodium Chloride 180 ML IVC SCH ×2 (01:51→14:30)
[2020-12-19] MEDS: Midazolam HCl 50 MG/100 ML IV.SOLN IVC SCH ×3 (01:53→16:58)
[2020-12-19] MEDS: FentaNYL (PF) 1,000 MCG/100 ML IV.SOLN IVC SCH ×3 (01:53→16:58)
[2020-12-19] MEDS: Dexmedetomidine HCl 400 MCG/100 ML MLS IVC SCH (02:09)
[2020-12-19 03:02] LABS: ABG Base Excess -4 mEq/L (-2 to 3); ABG HCO3 24 mEq/L (21-27); ABG Oxygen Saturation 96 % (95-98); ABG PCO2 55 mmHg (35-45); ABG PH 7.25 pH Units (7.32-7.45); ABG PO2 99 mmHg (85-104); ABG TCO2 26 mEq/L (20-26); Blood Gas VT 460 cc
[2020-12-19] MEDS: Ipratropium 1 PUFF INHALER IH SCH ×4 (03:15→22:15)
[2020-12-19] MEDS: Levalbuterol 1 PUFF INHALER IH SCH ×4 (03:15→22:15)
[2020-12-19] MEDS: Artificial Tears SOLN 15 ML BOTTLE BOTH EYES SCH ×5 (04:10→20:12)
[2020-12-19] MEDS: Insulin LISPRO 300 UNITS/3 ML VIAL SUBQ SCH ×5 (04:10→20:12)
[2020-12-19 04:34] LABS: VBG Ionized Calcium 1.18 mmol/L (1.15-1.35)
[2020-12-19 04:45] LABS: Basophils % 0.3 %; Mean Corpuscular Volume 93.9 fL (83.0-100.0)
[2020-12-19 04:47] LABS: Basophils # 0.1 K/mcL (0.0-0.2); Hematocrit 45.8 % (37.5-50.1); Hemoglobin 14.3 g/dL (12.9-16.9); Immature Granulocytes % 4.2 % (0-4); Lymphocytes # 0.7 K/mcL (0.6-4.6); Lymphocytes % 2.5 %; Mean Corpuscular HGB Conc 31.2 g/dL (31.6-35.5); Mean Corpuscular Hemoglobin 29.3 pg (28.0-33.3); Mean Platelet Volume 12.2 fL (9.4-12.4); Monocytes # 1.8 K/mcL (0.0-1.3); Monocytes % 6.1 %; Neutrophils # 24.9 K/mcL (1.6-8.9); Platelet Count 209 K/mcL (140-400); Red Blood Count 4.88 M/mcL (4.19-5.50); Red Cell Distribution Width 13.2 % (11.5-14.5); Segmented Neutrophils % 86.9 %; White Blood Count 28.7 K/mcL (4.3-11.1)
[2020-12-19 05:02] LABS: Calcium 8.2 mg/dL (8.6-10.3); Magnesium 2.9 mg/dL (1.6-2.6); Phosphorous 4.8 mg/dL (2.7-4.5); Potassium 5.5 mEq/L (3.5-5.1)
[2020-12-19] MEDS: *HR* Metoprolol 5 MG/5 ML VIAL IVP SCH ×4 (05:21→18:04)
[2020-12-19] MEDS: Chlorhexidine Rinse 15 ML MOUTHWASH MM SCH ×2 (08:01→20:12)
[2020-12-19] MEDS: Cholecalciferol (D-3) 1,000 UNIT (25MCG) TABLET PO SCH (08:01)
[2020-12-19] MEDS: Dexamethasone Sodium Phos/PF 10 MG/ML VIAL IVP SCH (08:01)
[2020-12-19] MEDS: Aspirin 81 MG TAB.CHEW PO SCH (08:01)
[2020-12-19] MEDS: Pantoprazole 40 MG VIAL IVP SCH (08:02)
[2020-12-19] MEDS: Acetaminophen 325 MG TABLET PO PRN (08:02)
[2020-12-19] MEDS: Heparin 25,000UNIT/250ML 1/2NS 25,000 UNIT/250 ML IV.SOLN IVC SCH (09:06)
[2020-12-19 09:49] LABS: JAK2 (V617F) Mutation by PCR NOT DETECTED
[2020-12-19 10:54] LABS: BCR-ABL1 Specimen Source NOT SPECIFIED
[2020-12-19] MEDS: Norepinephrine 4 MG/254 ML IV.SOLN IVC SCH ×2 (11:59→17:06)
[2020-12-19] MEDS ORDERED: 0.9 % Sodium Chloride 500 ML ONE (12:02)
[2020-12-19] MEDS: Thiamine (B-1) 500 MG in 0.9 % Sodium Chloride 50 ML IVPB SCH ×3 (12:03→20:41)
[2020-12-19] MEDS ORDERED: Acetaminophen IV 500 MG/50 ML BAG IVPB ONE (13:00)
[2020-12-19 14:58] LABS: Hematocrit 44.3 % (37.5-50.1); Hemoglobin 13.5 g/dL (12.9-16.9)
[2020-12-19 15:10] LABS: Bacteria,Urine Few per hpf (None-Few); Bilirubin,Urine Negative (Negative); Blood,Urine Moderate (Negative); Clarity,Urine Turbid (Clear); Color,Urine Dark-Yellow (Yellow); Glucose,Urine (UA) Normal (Normal); Granular Casts,Urine Moderate per lpf (None Seen); Hyaline Casts,Urine Many per lpf (None Seen); Ketones,Urine Negative (Negative); Leukocyte Esterase,Urine Negative (Negative); Mucus,Urine Few per lpf (None-Few); Nitrite,Urine Negative (Negative); PH,Urine 5.5 pH Units (5.0-8.0); Protein,Urine 50 mg/dL (Neg-Trace); RBC,Urine 50-100 per hpf (0-3); Specific Gravity,Urine 1.028 (1.010-1.025); Squamous Epithelial Cell,Urine Few per hpf (None-Few); Transitional Epi Cells,Urine Few per hpf (None-Few); Urobilinogen,Urine Normal (Normal)
[2020-12-19] MEDS: Pantoprazole 40 MG in 0.9 % Sodium Chloride Mini Bag 100 ML IVC SCH ×3 (16:51→22:14)
[2020-12-19] MEDS ORDERED: Clinimix 5%-20% SOLUTION 2,000 ML with MVI, adult with vitamin K 10 ML, Sodium Acetat... IVC SCH (17:00)
[2020-12-19] MEDS ORDERED: *HR* Propofol 200 MG/20 ML VIAL IVP ONE (19:19)
[2020-12-19] MEDS ORDERED: *HR* Succinylcholine 200 MG/10 ML VIAL IVP ONE (19:19)
[2020-12-20] MEDS: Artificial Tears SOLN 15 ML BOTTLE BOTH EYES SCH ×7 (00:27→23:57)
[2020-12-20] MEDS: *HR* Metoprolol 5 MG/5 ML VIAL IVP SCH ×5 (00:28→23:57)
[2020-12-20] MEDS: Insulin LISPRO 300 UNITS/3 ML VIAL SUBQ SCH ×7 (00:28→23:57)
[2020-12-20] MEDS: FentaNYL (PF) 1,000 MCG/100 ML IV.SOLN IVC SCH ×4 (00:40→23:56)
[2020-12-20] MEDS: Midazolam HCl 50 MG/100 ML IV.SOLN IVC SCH ×3 (02:09→19:59)
[2020-12-20] MEDS: *HR* Metoprolol 5 MG/5 ML VIAL IVP PRN (02:46)
[2020-12-20] MEDS: Pantoprazole 40 MG in 0.9 % Sodium Chloride Mini Bag 100 ML IVC SCH ×5 (02:49→23:55)
[2020-12-20] MEDS: Norepinephrine 4 MG/254 ML IV.SOLN IVC SCH ×3 (02:51→16:58)
[2020-12-20] MEDS: Levalbuterol 1 PUFF INHALER IH SCH ×4 (03:25→21:47)
[2020-12-20] MEDS: Ipratropium 1 PUFF INHALER IH SCH ×4 (03:25→21:46)
[2020-12-20] MEDS: Cisatracurium 200 MG in 0.9 % Sodium Chloride 180 ML IVC SCH ×2 (03:57→17:30)
[2020-12-20 04:28] LABS: Albumin 2.4 g/dL (3.5-5.7); Albumin/Globulin Ratio 1.1 (1.1-2.2); Bilirubin,Total 1.1 mg/dL (0.3-1.0); Calcium 7.6 mg/dL (8.6-10.3); Globulin 2.2 g/dL (2.4-3.5); Phosphorous 6.3 mg/dL (2.7-4.5); Potassium 5.2 mEq/L (3.5-5.1); Total Protein 4.6 g/dL (6.4-8.9)
[2020-12-20 04:35] LABS: ABG Base Excess -8 mEq/L (-2 to 3); ABG HCO3 19 mEq/L (21-27); ABG Oxygen Saturation 96 % (95-98); ABG PCO2 47 mmHg (35-45); ABG PH 7.22 pH Units (7.32-7.45); ABG PO2 98 mmHg (85-104); ABG TCO2 21 mEq/L (20-26); Blood Gas VT 460 cc
[2020-12-20] MEDS: Aspirin 81 MG TAB.CHEW PO SCH (07:51)
[2020-12-20] MEDS: Thiamine (B-1) 500 MG in 0.9 % Sodium Chloride 50 ML IVPB SCH ×3 (07:54→19:58)
[2020-12-20] MEDS: Cholecalciferol (D-3) 1,000 UNIT (25MCG) TABLET PO SCH (07:55)
[2020-12-20] MEDS: Chlorhexidine Rinse 15 ML MOUTHWASH MM SCH ×2 (07:55→19:58)
[2020-12-20] MEDS ORDERED: Insulin DETEMIR 100 UNIT/ML X5UNITS SUBQ ONE (12:00)
[2020-12-20] MEDS ORDERED: 0.9 % Sodium Chloride 250 ML ONE (12:29)
[2020-12-20] MEDS ORDERED: 0.9 % Sodium Chloride 500 ML ONE (13:45)
[2020-12-20] MEDS ORDERED: *HR* Heparin 5,000 UNIT/ML VIAL IVP PRN (13:55)
[2020-12-20] MEDS ORDERED: 0.9 % Sodium Chloride 1,000 ML PRIME ONE ×2 (13:55)
[2020-12-20] MEDS ORDERED: *HR* Alteplase (Cathflo) 2 MG VIAL IVP PRN (13:55)
[2020-12-20] MEDS ORDERED: 0.9 % Sodium Chloride 1,000 ML PRIME SCH (14:00)
[2020-12-20] MEDS ORDERED: *HR* Heparin 5,000 UNIT/ML VIAL ONE (14:03)
[2020-12-20] MEDS: PrismaSATE BGK 4/2.5 5,000 ML CRRT SCH ×4 (15:15→20:34)
[2020-12-20] MEDS ORDERED: Clinimix 5%-20% SOLUTION 2,000 ML with MVI, adult with vitamin K 10 ML, Sodium Acetat... IVC SCH (17:00)
[2020-12-20] MEDS: Piperacillin/Tazobactam 3.375 GM in 0.9 % Sodium Chloride Mini Bag 100 ML IVPB SCH (17:09)
[2020-12-20] MEDS: *HR* Heparin 5,000 UNIT/ML VIAL SQ SCH (19:58)
[2020-12-20] MEDS: Insulin DETEMIR 100 UNIT/ML X5UNITS SUBQ SCH (19:58)
[2020-12-21] MEDS: Piperacillin/Tazobactam 3.375 GM in 0.9 % Sodium Chloride Mini Bag 100 ML IVPB SCH ×3 (01:22→16:43)
[2020-12-21] MEDS: PrismaSATE BGK 4/2.5 5,000 ML CRRT SCH ×10 (01:23→23:00)
[2020-12-21 03:22] LABS: Hematocrit 37.8 % (37.5-50.1); Hemoglobin 11.8 g/dL (12.9-16.9); Mean Corpuscular HGB Conc 31.2 g/dL (31.6-35.5); Mean Corpuscular Hemoglobin 29.7 pg (28.0-33.3); Mean Corpuscular Volume 95.2 fL (83.0-100.0); Mean Platelet Volume 12.5 fL (9.4-12.4); Platelet Count 191 K/mcL (140-400); Red Blood Count 3.97 M/mcL (4.19-5.50); Red Cell Distribution Width 13.5 % (11.5-14.5)
[2020-12-21 03:24] LABS: White Blood Count 35.6 K/mcL (4.3-11.1)
[2020-12-21 03:29] LABS: Creatinine,Urine 136 mg/dL; Protein/Creatinine Ratio,Urine 0.41 mg/mg (0.00-0.20); Sodium, Urine < 10.0 mEq/L
[2020-12-21 03:40] LABS: Albumin 2.4 g/dL (3.5-5.7); Bilirubin,Total 1.2 mg/dL (0.3-1.0); Calcium 7.4 mg/dL (8.6-10.3); Globulin 2.3 g/dL (2.4-3.5); Magnesium 2.5 mg/dL (1.6-2.6); Phosphorous 4.1 mg/dL (2.7-4.5); Potassium 5.2 mEq/L (3.5-5.1); Total Protein 4.7 g/dL (6.4-8.9)
[2020-12-21] MEDS: Ipratropium 1 PUFF INHALER IH SCH ×4 (03:58→21:10)
[2020-12-21] MEDS: Levalbuterol 1 PUFF INHALER IH SCH ×4 (03:58→21:10)
[2020-12-21] MEDS: Midazolam HCl 50 MG/100 ML IV.SOLN IVC SCH ×3 (04:08→22:00)
[2020-12-21] MEDS: Pantoprazole 40 MG in 0.9 % Sodium Chloride Mini Bag 100 ML IVC SCH ×4 (04:08→19:58)
[2020-12-21] MEDS: Artificial Tears SOLN 15 ML BOTTLE BOTH EYES SCH ×6 (04:18→23:41)
[2020-12-21] MEDS: Insulin LISPRO 300 UNITS/3 ML VIAL SUBQ SCH ×5 (04:19→19:56)
[2020-12-21 04:32] LABS: ABG Base Excess -4 mEq/L (-2 to 3); ABG HCO3 22 mEq/L (21-27); ABG Oxygen Saturation 99 % (95-98); ABG PCO2 44 mmHg (35-45); ABG PH 7.31 pH Units (7.32-7.45); ABG PO2 144 mmHg (85-104); ABG TCO2 24 mEq/L (20-26); Blood Gas Modality ASSIST CONTROL; Blood Gas VT 460 cc
[2020-12-21] MEDS: *HR* Heparin 5,000 UNIT/ML VIAL SQ SCH ×3 (05:23→22:45)
[2020-12-21] MEDS: FentaNYL (PF) 1,000 MCG/100 ML IV.SOLN IVC SCH ×3 (05:24→21:00)
[2020-12-21] MEDS: *HR* Metoprolol 5 MG/5 ML VIAL IVP SCH ×4 (05:24→23:41)
[2020-12-21] MEDS: Cisatracurium 200 MG in 0.9 % Sodium Chloride 180 ML IVC SCH (05:25)
[2020-12-21] MEDS: Aspirin 81 MG TAB.CHEW GTUBE SCH (07:48)
[2020-12-21] MEDS: Cholecalciferol (D-3) 1,000 UNIT (25MCG) TABLET PO SCH (07:48)
[2020-12-21] MEDS: Insulin DETEMIR 100 UNIT/ML X5UNITS SUBQ SCH ×2 (07:49→19:58)
[2020-12-21] MEDS: Thiamine (B-1) 500 MG in 0.9 % Sodium Chloride 50 ML IVPB SCH ×2 (07:49→14:35)
[2020-12-21] MEDS: Chlorhexidine Rinse 15 ML MOUTHWASH MM SCH ×2 (07:49→19:58)
[2020-12-21 11:47] LABS: Hepatitis B Surface Antibody < 3.10 mIU/mL
[2020-12-21 11:58] LABS: Hepatitis B Surface Antigen Nonreactive (Nonreactive)
[2020-12-21] MEDS ORDERED: Clinimix 5%-20% SOLUTION 2,000 ML with MVI, adult with vitamin K 10 ML, ZN/CU/MN/SE 1... IVC SCH (17:00)
[2020-12-22] MEDS: Insulin LISPRO 300 UNITS/3 ML VIAL SUBQ SCH ×6 (00:07→21:34)
[2020-12-22] MEDS: Norepinephrine 4 MG/254 ML IV.SOLN IVC SCH ×2 (01:00→16:22)
[2020-12-22] MEDS: Pantoprazole 40 MG in 0.9 % Sodium Chloride Mini Bag 100 ML IVC SCH ×3 (01:24→11:56)
[2020-12-22] MEDS: Piperacillin/Tazobactam 3.375 GM in 0.9 % Sodium Chloride Mini Bag 100 ML IVPB SCH ×3 (01:24→17:12)
[2020-12-22] MEDS: FentaNYL (PF) 1,000 MCG/100 ML IV.SOLN IVC SCH ×3 (04:00→20:00)
[2020-12-22] MEDS: PrismaSATE BGK 4/2.5 5,000 ML CRRT SCH ×6 (04:00→19:30)
[2020-12-22] MEDS: Artificial Tears SOLN 15 ML BOTTLE BOTH EYES SCH ×6 (04:03→23:18)
[2020-12-22] MEDS: Ipratropium 1 PUFF INHALER IH SCH ×4 (04:15→21:21)
[2020-12-22] MEDS: Levalbuterol 1 PUFF INHALER IH SCH ×4 (04:15→21:21)
[2020-12-22 05:10] LABS: Calcium 7.2 mg/dL (8.6-10.3); Magnesium 2.2 mg/dL (1.6-2.6); Phosphorous 2.8 mg/dL (2.7-4.5); Potassium 4.6 mEq/L (3.5-5.1)
[2020-12-22 05:28] LABS: ABG Base Excess -3 mEq/L (-2 to 3); ABG HCO3 24 mEq/L (21-27); ABG Oxygen Saturation 94 % (95-98); ABG PCO2 49 mmHg (35-45); ABG PO2 81 mmHg (85-104); ABG TCO2 25 mEq/L (20-26); Blood Gas Modality ASSIST CONTROL; Blood Gas VT 460 cc
[2020-12-22] MEDS: *HR* Metoprolol 5 MG/5 ML VIAL IVP SCH ×4 (05:58→23:17)
[2020-12-22] MEDS: *HR* Heparin 5,000 UNIT/ML VIAL SQ SCH (06:25)
[2020-12-22 06:39] LABS: VBG Ionized Calcium 1.13 mmol/L (1.15-1.35)
[2020-12-22 06:51] LABS: Hematocrit 35.4 % (37.5-50.1); Mean Corpuscular HGB Conc 31.1 g/dL (31.6-35.5); Mean Corpuscular Hemoglobin 29.6 pg (28.0-33.3); Mean Corpuscular Volume 95.2 fL (83.0-100.0); Mean Platelet Volume 12.8 fL (9.4-12.4); Platelet Count 141 K/mcL (140-400); Red Blood Count 3.72 M/mcL (4.19-5.50); Red Cell Distribution Width 13.7 % (11.5-14.5)
[2020-12-22 06:53] LABS: White Blood Count 32.5 K/mcL (4.3-11.1)
[2020-12-22] MEDS: Midazolam HCl 50 MG/100 ML IV.SOLN IVC SCH (07:51)
[2020-12-22] MEDS: Insulin DETEMIR 100 UNIT/ML X5UNITS SUBQ SCH ×2 (07:52→21:15)
[2020-12-22] MEDS: Cholecalciferol (D-3) 1,000 UNIT (25MCG) TABLET PO SCH (07:52)
[2020-12-22] MEDS: Aspirin 81 MG TAB.CHEW GTUBE SCH (07:52)
[2020-12-22] MEDS: Chlorhexidine Rinse 15 ML MOUTHWASH MM SCH ×2 (07:52→19:30)
[2020-12-22] MEDS ORDERED: Amiodarone Premix 360 MG/200 ML BAG IVC ONE (08:33)
[2020-12-22] MEDS ORDERED: Amiodarone Premix 150 MG/100 ML BAG IVPB ONE (08:33)
[2020-12-22] MEDS ORDERED: *HR* Heparin 5,000 UNIT/ML VIAL IVP PRN ×2 (08:35)
[2020-12-22] MEDS: Heparin 25,000UNIT/250ML 1/2NS 25,000 UNIT/250 ML IV.SOLN IVC SCH (10:56)
[2020-12-22] MEDS ORDERED: Calcium Gluconate 1gm/50mL 1 GM/50 ML BAG IVPB ONE (14:45)
[2020-12-22] MEDS: Amiodarone Premix 360 MG/200 ML BAG IVC SCH (15:45)
[2020-12-22] MEDS ORDERED: Clinimix 5%-20% SOLUTION 2,000 ML with MVI, adult with vitamin K 10 ML, Sodium Acetat... IVC SCH (17:00)
[2020-12-22] MEDS: Pantoprazole 40 MG VIAL IVP SCH (17:07)
[2020-12-22] MEDS: Thiamine (B-1) 100 MG TABLET PO SCH ×2 (17:14→19:30)
[2020-12-23] MEDS: Insulin LISPRO 300 UNITS/3 ML VIAL SUBQ SCH ×7 (00:10→23:46)
[2020-12-23] MEDS: PrismaSATE BGK 4/2.5 5,000 ML CRRT SCH ×8 (00:30→22:22)
[2020-12-23] MEDS: Piperacillin/Tazobactam 3.375 GM in 0.9 % Sodium Chloride Mini Bag 100 ML IVPB SCH ×3 (01:15→16:00)
[2020-12-23] MEDS: Cisatracurium 200 MG in 0.9 % Sodium Chloride 180 ML IVC SCH ×2 (02:00→16:03)
[2020-12-23] MEDS: Midazolam HCl 50 MG/100 ML IV.SOLN IVC SCH ×2 (03:00→21:00)
[2020-12-23] MEDS: FentaNYL (PF) 1,000 MCG/100 ML IV.SOLN IVC SCH ×3 (03:04→19:00)
[2020-12-23 03:18] LABS: Hemoglobin 10.5 g/dL (12.9-16.9)
[2020-12-23 03:19] LABS: Hematocrit 33.4 % (37.5-50.1); Mean Corpuscular HGB Conc 31.4 g/dL (31.6-35.5); Mean Corpuscular Hemoglobin 29.6 pg (28.0-33.3); Mean Corpuscular Volume 94.1 fL (83.0-100.0); Mean Platelet Volume 12.7 fL (9.4-12.4); Platelet Count 108 K/mcL (140-400); Red Blood Count 3.55 M/mcL (4.19-5.50)
[2020-12-23 03:21] LABS: White Blood Count 31.1 K/mcL (4.3-11.1)
[2020-12-23 03:30] LABS: Calcium 7.5 mg/dL (8.6-10.3); Magnesium 2.2 mg/dL (1.6-2.6); Phosphorous 3.3 mg/dL (2.7-4.5); Potassium 4.9 mEq/L (3.5-5.1)
[2020-12-23] MEDS: Ipratropium 1 PUFF INHALER IH SCH ×4 (03:37→19:31)
[2020-12-23] MEDS: Levalbuterol 1 PUFF INHALER IH SCH ×4 (03:37→19:31)
[2020-12-23 04:02] LABS: ABG Base Excess -5 mEq/L (-2 to 3); ABG HCO3 23 mEq/L (21-27); ABG Oxygen Saturation 86 % (95-98); ABG PCO2 54 mmHg (35-45); ABG PH 7.24 pH Units (7.32-7.45); ABG PO2 62 mmHg (85-104); ABG TCO2 25 mEq/L (20-26); Blood Gas VT 460 cc
[2020-12-23] MEDS: *HR* Metoprolol 5 MG/5 ML VIAL IVP SCH ×4 (06:04→23:13)
[2020-12-23] MEDS: Pantoprazole 40 MG VIAL IVP SCH ×2 (06:04→19:34)
[2020-12-23] MEDS: Amiodarone Premix 360 MG/200 ML BAG IVC SCH ×2 (06:06→16:36)
[2020-12-23] MEDS: Norepinephrine 4 MG/254 ML IV.SOLN IVC SCH ×2 (07:01→21:00)
[2020-12-23] MEDS: Chlorhexidine Rinse 15 ML MOUTHWASH MM SCH ×2 (09:11→19:38)
[2020-12-23] MEDS: Insulin DETEMIR 100 UNIT/ML X5UNITS SUBQ SCH ×2 (09:12→19:38)
[2020-12-23] MEDS: Cholecalciferol (D-3) 1,000 UNIT (25MCG) TABLET PO SCH (09:12)
[2020-12-23] MEDS: Thiamine (B-1) 100 MG TABLET PO SCH ×3 (09:12→19:38)
[2020-12-23] MEDS: Aspirin 81 MG TAB.CHEW GTUBE SCH (09:12)
[2020-12-23] MEDS: Artificial Tears SOLN 15 ML BOTTLE BOTH EYES SCH ×6 (09:18→23:46)
[2020-12-23 10:49] LABS: VBG Ionized Calcium 1.17 mmol/L (1.15-1.35)
[2020-12-23] MEDS: Heparin 25,000UNIT/250ML 1/2NS 25,000 UNIT/250 ML IV.SOLN IVC SCH (14:58)
[2020-12-23] MEDS ORDERED: Clinimix 5%-20% SOLUTION 2,000 ML with MVI, adult with vitamin K 10 ML, Sodium Acetat... IVC SCH (17:00)
[2020-12-24] MEDS: Piperacillin/Tazobactam 3.375 GM in 0.9 % Sodium Chloride Mini Bag 100 ML IVPB SCH ×2 (01:29→07:54)
[2020-12-24] MEDS: PrismaSATE BGK 4/2.5 5,000 ML CRRT SCH ×6 (01:30→11:30)
[2020-12-24] MEDS: FentaNYL (PF) 1,000 MCG/100 ML IV.SOLN IVC SCH ×3 (02:01→15:45)
[2020-12-24] MEDS: Levalbuterol 1 PUFF INHALER IH SCH ×3 (03:26→16:05)
[2020-12-24] MEDS: Ipratropium 1 PUFF INHALER IH SCH ×3 (03:27→16:05)
[2020-12-24 03:49] LABS: ABG Base Excess -7 mEq/L (-2 to 3); ABG HCO3 23 mEq/L (21-27); ABG Oxygen Saturation 64 % (95-98); ABG PCO2 63 mmHg (35-45); ABG PH 7.16 pH Units (7.32-7.45); ABG PO2 43 mmHg (85-104); ABG TCO2 24 mEq/L (20-26); Blood Gas VT 460 cc
[2020-12-24 04:11] LABS: Hematocrit 33.3 % (37.5-50.1); Hemoglobin 10.3 g/dL (12.9-16.9); Immature Platelets 13.8 % (1.1-6.1); Mean Corpuscular HGB Conc 30.9 g/dL (31.6-35.5); Mean Corpuscular Volume 97.1 fL (83.0-100.0); Mean Platelet Volume 12.7 fL (9.4-12.4); Red Blood Count 3.43 M/mcL (4.19-5.50); Red Cell Distribution Width 15.3 % (11.5-14.5)
[2020-12-24 04:21] LABS: White Blood Count 31.5 K/mcL (4.3-11.1)
[2020-12-24 04:26] LABS: Calcium 7.9 mg/dL (8.6-10.3); Magnesium 2.4 mg/dL (1.6-2.6); Phosphorous 4.1 mg/dL (2.7-4.5); Potassium 5.4 mEq/L (3.5-5.1)
[2020-12-24] MEDS: Insulin LISPRO 300 UNITS/3 ML VIAL SUBQ SCH ×4 (04:43→15:25)
[2020-12-24] MEDS: Artificial Tears SOLN 15 ML BOTTLE BOTH EYES SCH ×4 (04:43→15:24)
[2020-12-24] MEDS: Amiodarone Premix 360 MG/200 ML BAG IVC SCH (05:14)
[2020-12-24] MEDS: *HR* Metoprolol 5 MG/5 ML VIAL IVP SCH ×2 (05:36→12:06)
[2020-12-24] MEDS: Cisatracurium 200 MG in 0.9 % Sodium Chloride 180 ML IVC SCH (06:21)
[2020-12-24] MEDS: Insulin DETEMIR 100 UNIT/ML X5UNITS SUBQ SCH (07:51)
[2020-12-24] MEDS: Cholecalciferol (D-3) 1,000 UNIT (25MCG) TABLET PO SCH (07:54)
[2020-12-24] MEDS: Thiamine (B-1) 100 MG TABLET PO SCH ×2 (07:54→15:24)
[2020-12-24] MEDS: Chlorhexidine Rinse 15 ML MOUTHWASH MM SCH (07:54)
[2020-12-24] MEDS: Aspirin 81 MG TAB.CHEW GTUBE SCH (07:54)
[2020-12-24] MEDS: Norepinephrine 4 MG/254 ML IV.SOLN IVC SCH ×4 (07:57→17:36)
[2020-12-24 12:14] VITALS: TEMP 99.4
[2020-12-24] MEDS ORDERED: Phenylephrine 10 MG in 0.9 % Sodium Chloride 250 ML IVC SCH (15:15)
[2020-12-24] MEDS: Midazolam HCl 50 MG/100 ML IV.SOLN IVC SCH (15:45)
[2020-12-24] MEDS ORDERED: *HR* Heparin 5,000 UNIT/ML VIAL ONE (16:56)
[2020-12-24] MEDS ORDERED: Clinimix 5%-20% SOLUTION 2,000 ML with MVI, adult with vitamin K 10 ML, Sodium Acetat... IVC SCH (17:00)
[2020-12-24] MEDS ORDERED: *HR* LORazepam 2 MG/ML VIAL IVP PRN (19:05)
[2020-12-24] MEDS ORDERED: Atropine 1% Opth Drops 100 DROP/5 ML BOTTLE SL PRN (19:09)
[2020-12-24] MEDS ORDERED: *HR* LORazepam 2 MG/ML VIAL ONE (19:10)
[2020-12-24] MEDS ORDERED: Scopolamine Patch 1.5 MG PATCH.TD72 TD SCH (19:15)
[2020-12-24 19:45] VITALS: BP 97/65; PULSE 132; O2SAT 81
== END 2020-12-24 19:20 | disposition expired | DRG 207 ==
LOC: EMEROOARM 05:13 → 3NENU 05:13 → SUATTDRO 17:18 → ICNU 12-13 10:43
PROVIDERS: ADMIT General Practice; ATTEND Internal Medicine